=== PATIENT | female | born 1940 | race American Indian/Alaskan Native ===

== ENCOUNTER 2019-10-16 | Observation (INO) | payer MEDICARE ==
[2019-10-16 01:33] LABS: Basophils % (Auto) 0.5 % (0.0-1.8); Eosinophils % (Auto) 0.3 % (0.0-4.3); Lymphocytes # (Auto) 1.9 K/mm3 (1.2-5.4); Mean Corpuscular HGB Conc 34 % (30-34); Mean Corpuscular Volume 88 fl (79-97); Monocytes # (Auto) 0.4 K/mm3 (0.0-0.8); Monocytes % (Auto) 4.6 % (0.0-7.3); Platelet Count 270 K/mm3 (140-440); Red Blood Count 3.97 M/mm3 (3.65-5.03); Red Cell Distribution Width 13.8 % (13.2-15.2)
[2019-10-16 01:57] LABS: Albumin 4.6 g/dL (3.9-5); Calcium 10.7 mg/dL (8.4-10.2)
[2019-10-16] MEDS ORDERED: MORPHINE 4 MG/1 ML INJ IV ONE (03:13)
[2019-10-16] MEDS ORDERED: ONDANSETRON 4 MG/2 ML INJ IV ONE (03:13)
[2019-10-16] MEDS ORDERED: SODIUM CHLORIDE 0.9% 250ML 250 ML IV ONE (03:14)
--- NOTE | 2019-10-16 03:15 | Emergency Department Report ---
ED General Adult HPI - General Chief complaint: Abdominal Pain Stated complaint: N/V/ABD PAIN Time Seen by Provider: 10/16/19 03:02 Source: patient, RN notes reviewed, old records reviewed Mode of arrival: Ambulatory Limitations: No Limitations - History of Present Illness Initial comments: Memory care Dr.: Dr. Osman Calvo Urology: Dr. Ld Tracy Patient is a 79-year-old female with a history of chronic right-sided exotropic strabismus, left-sided nephrectomy secondary to renal cell carcinoma, hypertension, believes that she may have had history of exploratory laparoscopy secondary to ulcer. Presents to the ER with a complaint of diffuse upper abdominal pain, associate with nausea and vomiting 5. It is nonbloody and nonbilious. It is white. She's not sure if she's defecated recently. She denies urinary symptoms. No chest pain and shortness of breath. No additional complaints. Not able to describe qualitative nature of abdominal pain. Increases with palpation. Decreases with rest and position. She does not believe it radiates anywhere. -: Gradual Location: abdomen Radiation: other Quality: other Consistency: other Improves with: other Worsens with: other - Related Data Home Medications Medication Instructions Recorded Confirmed Last Taken Aspirin [Aspirin BABY CHEW TAB] 81 mg PO 3XW 09/14/13 09/14/13 09/13/13 20:00 Tamoxifen Citrate 20 mg PO QDAY 09/14/13 09/14/13 09/13/13 20:00 amLODIPine 5 mg PO QDAY 09/14/13 09/14/13 09/13/13 21:30 Previous Rx's Medication Instructions Recorded Last Taken Type Ibuprofen [Motrin] 600 mg PO Q8H PRN #20 tablet 03/01/16 Unknown Rx Allergies Allergy/AdvReac Type Severity Reaction Status Date / Time No Known Allergies Allergy Verified 10/16/19 00:24 ED Review of Systems ROS: Stated complaint: N/V/ABD PAIN Other details as noted in HPI Constitutional: denies: fever Eyes: denies: eye discharge ENT: denies: congestion Respiratory: denies: wheezing Cardiovascular: denies: syncope Gastrointestinal: abdominal pain, nausea, vomiting. denies: diarrhea Genitourinary: denies: dysuria Musculoskeletal: denies: back pain Skin: denies: lesions Neurological: weakness Hematological/Lymphatic: denies: easy bleeding ED Past Medical Hx - Past Medical History Previous Medical History?: Yes Hx Hypertension: Yes - Surgical History Past Surgical History?: Yes Hx Cholecystectomy: Yes Additional Surgical History: left kidney removed. right eye surgery. breasts biopsy. abd. surgery - Social History Smoking Status: Never Smoker - Medications Home Medications: Home Medications Medication Instructions Recorded Confirmed Last Taken Type Aspirin [Aspirin BABY CHEW TAB] 81 mg PO 3XW 09/14/13 09/14/13 09/13/13 20:00 History Tamoxifen Citrate 20 mg PO QDAY 09/14/13 09/14/13 09/13/13 20:00 History amLODIPine 5 mg PO QDAY 09/14/13 09/14/13 09/13/13 21:30 History Ibuprofen [Motrin] 600 mg PO Q8H PRN #20 tablet 03/01/16 Unknown Rx ED Physical Exam - General Limitations: No Limitations General appearance: alert, in no apparent distress - Head Head exam: Present: atraumatic, normocephalic - Eye Eye exam: Present: normal appearance, other (right-sided exotropic strabismus is noted). Absent: nystagmus - ENT ENT exam: Present: normal exam, normal orophraynx, mucous membranes moist, normal external ear exam - Neck Neck exam: Present: normal inspection, full ROM. Absent: tenderness, meningismus - Respiratory Respiratory exam: Present: normal lung sounds bilaterally. Absent: respiratory distress - Cardiovascular Cardiovascular Exam: Present: regular rate, normal rhythm, normal heart sounds. Absent: bradycardia, tachycardia, irregular rhythm, systolic murmur, diastolic murmur, rubs, gallop - GI/Abdominal GI/Abdominal exam: Present: soft, diminished bowel sounds. Absent: distended, tenderness, guarding, rebound, rigid, pulsatile mass - Extremities Exam Extremities exam: Present: normal inspection, full ROM, other (2+ pulses noted in the bilateral upper and lower extremities. There is no long bony tenderness. The pelvis is stable. The muscular compartments are soft. There is no palpable cord. There is no redness, pus or streaking.). Absent: calf tenderness - Back Exam Back exam: Present: normal inspection, full ROM. Absent: tenderness, CVA tenderness (R), CVA tenderness (L), paraspinal tenderness, vertebral tenderness - Neurological Exam Neurological exam: Present: alert, other (there is no facial droop. Tongue is midline. Extraocular movements are intact bilaterally. Walking with a steady gait. Speaking in full sentences. Normal appropriate thought content. 5 out of 5 strength in 4 extremities. Sensation is intact to light touch in 4 extremities.). Absent: motor sensory deficit - Psychiatric Psychiatric exam: Present: normal affect, normal mood - Skin Skin exam: Present: warm, dry, intact, normal color. Absent: rash ED Course Vital Signs 10/16/19 10/16/19 10/16/19 00:38 02:18 02:24 Temperature 98.8 F Pulse Rate 90 137 H Respiratory 18 20 20 Rate Blood Pressure 127/76 O2 Sat by Pulse 97 100 Oximetry 10/16/19 10/16/19 10/16/19 02:30 02:46 03:00 Temperature Pulse Rate 87 85 89 Respiratory 16 13 16 Rate Blood Pressure 123/73 123/73 121/69 O2 Sat by Pulse 98 98 Oximetry - Reevaluation(s) Reevaluation #1: 10/16/19 04:00 Differential diagnosis, including but not limited to: GERD, gastritis, pancreatitis, hiatal hernia, colitis, diverticulitis, urinary tract infection, acute coronary syndrome, obstruction, constipation Assessment and plan: 79-year-old female with upper abdominal pain, nausea, vomiting, without diarrhea, numerous abdominal surgeries, nonspecific x-ray of the abdomen and pelvis, renal insufficiency without baseline creatinine, urinalysis pending at this time. We will treat her symptoms, obtain urinalysis and additional screening laboratory studies, obtain noncontrast CT scan abdomen and pelvis, and reassess. Low threshold to admit for observation and serial abdominal exams, if CT nondiagnostic, given advanced age, and multiple medical comorbidities. Reevaluation #2: 10/16/19 04:56 Case presented to Hospital physician, Dr. Wyman, who accepts the patient to the medical service for renal insufficiency, abdominal pain, urinary tract infection metabolic acidosis likely secondary to all of the aforementioned 10/16/19 04:58 ED Medical Decision Making - Lab Data Result diagrams: 10/16/19 01:02 10/16/19 01:02 Vital Signs 10/16/19 10/16/19 10/16/19 00:38 02:18 02:24 Temperature 98.8 F Pulse Rate 90 137 H Respiratory 18 20 20 Rate Blood Pressure 127/76 O2 Sat by Pulse 97 100 Oximetry 10/16/19 10/16/19 10/16/19 02:30 02:46 03:00 Temperature Pulse Rate 87 85 89 Respiratory 16 13 16 Rate Blood Pressure 123/73 123/73 121/69 O2 Sat by Pulse 98 98 Oximetry Lab Results 10/16/19 10/16/19 Range/Units 01:02 01:02 WBC 8.0 (4.5-11.0) K/mm3 RBC 3.97 (3.65-5.03) M/mm3 Hgb 12.0 (10.1-14.3) gm/dl Hct 35.0 (30.3-42.9) % MCV 88 (79-97) fl MCH 30 (28-32) pg MCHC 34 (30-34) % RDW 13.8 (13.2-15.2) % Plt Count 270 (140-440) K/mm3 Lymph % (Auto) 24.0 (13.4-35.0) % Mora % (Auto) 4.6 (0.0-7.3) % Eos % (Auto) 0.3 (0.0-4.3) % Baso % (Auto) 0.5 (0.0-1.8) % Lymph # 1.9 (1.2-5.4) K/mm3 Mora # 0.4 (0.0-0.8) K/mm3 Eos # 0.0 (0.0-0.4) K/mm3 Baso # 0.0 (0.0-0.1) K/mm3 Seg Neutrophils % 70.6 H (40.0-70.0) % Seg Neutrophils # 5.6 (1.8-7.7) K/mm3 Sodium 143 (137-145) mmol/L Potassium 4.8 (3.6-5.0) mmol/L Chloride 103.0 (98-107) mmol/L Carbon Dioxide 21 L (22-30) mmol/L Anion Gap 24 mmol/L BUN 50 H (7-17) mg/dL Creatinine 2.8 H (0.7-1.2) mg/dL Estimated GFR 20 ml/min BUN/Creatinine Ratio 18 % Glucose 119 H (65-100) mg/dL Calcium 10.7 H (8.4-10.2) mg/dL Total Bilirubin 0.40 (0.1-1.2) mg/dL AST 24 (5-40) units/L ALT 14 (7-56) units/L Alkaline Phosphatase 110 (35-129) units/L Total Protein 8.8 H (6.3-8.2) g/dL Albumin 4.6 (3.9-5) g/dL Albumin/Globulin Ratio 1.1 % - EKG Data -: EKG Interpreted by Nc EKG shows normal: sinus rhythm Rate: normal - EKG Data When compared to previous EKG there are: previous EKG unavailable 10/16/19 03:56 No prior EKG is available for comparison at this time. The EKG shows a sinus rhythm, 92 bpm, borderline leftward axis deviation, QTC is prolonged, left ventricular hypertrophy, low voltage in the inferior leads, motion artifact. No prior for comparison, not consistent with ST elevation myocardial infarction - Radiology Data Radiology results: report reviewed, image reviewed Print Report Referring Physician: OVIDIO CHOWDARY Patient Name: SHWETA VILLAGOMEZ Date of : 1940 Sex: Female Report Date: 2019-10-16 Report Status: Finalized Findings [facility] [address] [place] [address] XRay Report Signed Patient: SHWETA VILLAGOMEZ R#: [id number] : 1940 Acct:[id number] Age/Sex: 79 / F ADM Date: 10/16/19 Loc: ED Attending Dr: Ordering Physician: OVIDIO CHOWDARY MD Date of Service: 10/16/19 Procedure(s): XR abd series w cxr 1V Accession Number(s): [id number] cc: OVIDIO CHOWDARY MD Fluoro Time In Minutes: Abdomen 3 views, Indication: ABD PAIN N/V WEAK Findings: The bowel gas pattern is within normal limits. There are no dilated loops of large or small bowel. No free air is identified. No radiopaque urinary tract calculi are seen. Lungs are clear. Impression: No acute findings. Signer Name: Henry Poon MD Signed: 10/16/2019 3:42 AM Workstation Name: [id number] Transcribed By: Dictated By: Henry Poon MD Electronically Authenticated By: Henry Poon MD Signed Date/Time: 10/16/19 0342 Print Report Referring Physician: OVIDIO CHOWDARY Patient Name: SWHETA VILLAGOMEZ Date of : 1940 Sex: Female Report Date: 2019-10-16 Report Status: Finalized Findings [facility] [address] [place] [address] Cat Scan Report Signed Patient: SHWETA VILLAGOMEZ R#: [id number] : 1940 Acct:[id number] Age/Sex: 79 / F ADM Date: 10/16/19 Loc: ED Attending Dr: Ordering Physician: OVIDIO CHOWDARY MD Date of Service: 10/16/19 Procedure(s): CT abdomen pelvis wo con Accession Number(s): [id number] cc: OVIDIO CHOWDARY MD CT abdomen pelvis wo con INDICATION: ABDOMINAL PAIN WITH NAUSEA VOMITING. TECHNIQUE: All CT scans at this location are performed using the following dose modulation technique: Automated exposure control. Helical slices were obtained through the abdomen and pelvis. No contrast is administered. COMPARISON: None available. FINDINGS: A small pericardial effusion. H ypodensities in the liver too small to characterize but likely represent cysts. Calcified granulomata are noted in the spleen. No acute abnormality is seen in the pancreas, adrenal glands, spleen. There is been prior left nephrectomy. There is a 3.3 cm soft tissue density lesion in the upper pole of the right kidney. There is no obstruction or inflammation. The gallbladder is grossly unremarkable. Pelvis: The urinary bladder is significantly distended. There are nodules in the uterus characteristic of fibroids. There is no adenopathy. There is no inflammatory change. On review of bone windows, no acute osseous abnormalities are seen. There is a grade 1 spondylolisthesis at L4-5. IMPRESSION: The urinary bladder is significantly distended. 3.3 cm nodule in the right kidney is somewhat hyperdense. This likely represents a hyperdense cyst. Ultrasound imaging is recommended to further evaluate. There is been prior left nephrectomy. There is a small pericardial effusion. Hypodensities in the liver too small to characterize. These are likely cysts. Signer Name: Henry Poon MD Signed: 10/16/2019 4:48 AM Workstation Name: [id number] Transcribed By: SS Dictated By: Henry Poon MD Electronically Authenticated By: Henry Poon MD Signed Date/Time: 10/16/19 1541 Critical care attestation.: If time is entered above; I have spent that time in minutes in the direct care of this critically ill patient, excluding procedure time. ED Disposition Clinical Impression: Renal insufficiency, UTI (urinary tract infection), Metabolic acidosis Disposition: -09 OP ADMIT IP TO THIS HOSP Is pt being admited?: Yes Condition: Fair Instructions: Abdominal Pain (ED) Referrals: ALLYN BOWMAN MD [Referring] - 3-5 Days
--- NOTE | 2019-10-16 03:47 | XRay Report ---
Abdomen 3 views, Indication: ABD PAIN N/V WEAK Findings: The bowel gas pattern is within normal limits. There are no dilated loops of large or small bowel. No free air is identified. No radiopaque urinary tract calculi are seen. Lungs are clear. Impression: No acute findings. Signer Name: Henry Poon MD Signed: 10/16/2019 3:42 AM Workstation Name: [id number]
[2019-10-16 04:34] LABS: Bacteria,Urine 1+ /HPF (Negative); Bilirubin,Urine NEG (Negative); Blood,Urine MOD (Negative); Color,Urine Yellow (Yellow); Mucus,Urine FEW /HPF; Protein,Urine <15 mg/dL mg/dL (Negative); Urobilinogen,Urine < 2.0 mg/dL (<2.0)
[2019-10-16] MEDS ORDERED: cefTRIAXone/NS 1 GM/50 ML 1 GM/50 ML BAG IV ONE (04:50)
--- NOTE | 2019-10-16 04:52 | Cat Scan Report ---
CT abdomen pelvis wo con INDICATION: ABDOMINAL PAIN WITH NAUSEA VOMITING. TECHNIQUE: All CT scans at this location are performed using the following dose modulation technique: Automated exposure control. Helical slices were obtained through the abdomen and pelvis. No contrast is adminis tered. COMPARISON: None available. FINDINGS: A small pericardial effusion. Hypodensities in the liver too small to characterize but likely represe nt cysts. Calcified granulomata are noted in the spleen. No acute abnormality is seen in the pancreas , adrenal glands, spleen. There is been prior left nephrectomy. There is a 3.3 cm soft tissue density lesion in the upper pole of the right kidney. There is no obstruction or inflammation. The gallbladder is grossly unremarkable. Pelvis: The urinary bladder is significantly distended. There are nodules in the uterus characteristi c of fibroids. There is no adenopathy. There is no inflammatory change. On review of bone windows, no acute osseous abnormalities are seen. There is a grade 1 spondylolisthe sis at L4-5. IMPRESSION: The urinary bladder is significantly distended. 3.3 cm nodule in the right kidney is somewhat hyperdense. This likely represents a hyperdense cyst. U ltrasound imaging is recommended to further evaluate. There is been prior left nephrectomy. There is a small pericardial effusion. Hypodensities in the liver too small to characterize. These are likely cysts. Signer Name: Henry Poon MD Signed: 10/16/2019 4:48 AM Workstation Name: [id number]
[2019-10-16] MEDS ORDERED: ACETAMINOPHEN 325 MG TAB PO PRN (05:50)
--- NOTE | 2019-10-16 05:55 | History and Physical Report ---
History of Present Illness History of present illness: 79-year-old woman with a history of hypertension, renal cell cancer comes emergency room with complaints of abdominal pain that started Monday. Pain is in t all over which she describes as sharp pain, constant, intensity 5/10, intermittent every 2 to 3 minutes, no radiation better with pain medication given in the emergency room. Admits to nausea, no vomiting, vomiting, 5 episodes. Denies dysuria, admits to urinary frequency. Patient states that she was started on antibiotic recently for urinary tract infection, she has completed 5 days out of 7, she does not know the antibiotic which she is taking. The patient is being admitted for acute renal insufficiency, urinary tract infe ction Review Of Systems: Constitutional: no weight loss, fever, chills Ears, eyes, nose, mouth and throat: no nasal congestion, no nasal discharge, no sinus pressure, blurry vision, diplopia Neck: No neck pain or rigidity. Cardiovascular: No palpitations, chest pain Respiratory: No s cough, shortness of breath Gastrointestinal: No hematochezia Genitourinary : no dysuria, frequency , hematuria Musculoskeletal: no muscle ache , joint pain Integumentary: no rash, no pruritis Neurological: no parathesias, focal weakness Endocrine: no cold or heat intolerance, no polyuria or polydipsia Hematologic/Lymphatic: no easy bruising, no easy bleeding, no gland swelling Allergic/Immunologic: no urticaria, no angioedema. PAST MEDICAL HISTORY: Hypertension, renal cell cancer PAST SURGICAL HISTORY: Left nephrectomy FAMILY HISTORY:hypertension, diabetes SOCIAL HISTORY: Denies tobacco, drugs, alcohol Medications and Allergies Allergies Allergy/AdvReac Type Severity Reaction Status Date / Time No Known Allergies Allergy Verified 10/16/19 00:24 Home Medications Medication Instructions Recorded Confirmed Last Taken Type Aspirin [Aspirin BABY CHEW TAB] 81 mg PO 3XW 09/14/13 09/14/13 09/13/13 20:00 History Tamoxifen Citrate 20 mg PO QDAY 09/14/13 09/14/13 09/13/13 20:00 History amLODIPine 5 mg PO QDAY 09/14/13 09/14/13 09/13/13 21:30 History Ibuprofen [Motrin] 600 mg PO Q8H PRN #20 tablet 03/01/16 Unknown Rx Active Meds: Active Medications Acetaminophen (Tylenol) 650 mg PO Q4H PRN PRN Reason: Pain MILD(1-3)/Fever >100.5/MAYA Enoxaparin Sodium (Enoxaparin) 30 mg SUB-Q QDAY LAURA Sodium Chloride (Nacl 0.45% 1000 Ml) 1,000 mls @ 75 mls/hr IV DIRECT LAURA Ondansetron HCl (Zofran) 4 mg IV Q8H PRN PRN Reason: Nausea And Vomiting Sodium Chloride (Sodium Chloride Flush Syringe 10 Ml) 10 ml IV BID LAURA Sodium Chloride (Sodium Chloride Flush Syringe 10 Ml) 10 ml IV PRN PRN PRN Reason: LINE FLUSH Exam - Physical Exam Narrative exam: General Apperance: The patient sitting in bed no acute distress HEENT: Normocephalic, atraumatic. Pupils equally round and reactive to light, extraocular movement intact, and no sclericterus or JVD or thyromegaly or nodule. Neck supple, no carotid bruit, mucous membranes moist, no exudate or erythema Heart: S1-S2, regular is rhythm Lungs: Clear to auscultation decreased breath sounds at bases bilaterally, breathing comfortable Abdomen: Positive bowel sounds, soft, nontender, nondistended, no organomegaly Extremities: No edema cyanosis clubbing Skin: no rash, nodule, warm and dry Neuro:CN 2 -12 intact, motor/sensory intact, speech is fluent - Constitutional Vitals: Temp Pulse Resp BP Pulse Ox 98.8 F 82 16 114/65 95 10/16/19 00:38 10/16/19 03:46 10/16/19 03:46 10/16/19 05:30 10/16/19 05:30 Results - Labs CBC & Chem 7: 10/16/19 01:02 10/16/19 01:02 Labs: Abnormal lab results 10/16/19 10/16/19 10/16/19 Range/Units 01:02 01:02 03:38 Seg Neutrophils % 70.6 H (40.0-70.0) % Carbon Dioxide 21 L (22-30) mmol/L BUN 50 H (7-17) mg/dL Creatinine 2.8 H (0.7-1.2) mg/dL Glucose 119 H (65-100) mg/dL Lactic Acid 2.40 H* (0.7-2.0) mmol/L Calcium 10.7 H (8.4-10.2) mg/dL Total Protein 8.8 H (6.3-8.2) g/dL Lipase (13-60) units/L Urine WBC (Auto) (0.0-6.0) /HPF 10/16/19 10/16/19 Range/Units 03:38 Unknown Seg Neutrophils % (40.0-70.0) % Carbon Dioxide (22-30) mmol/L BUN (7-17) mg/dL Creatinine (0.7-1.2) mg/dL Glucose (65-100) mg/dL Lactic Acid (0.7-2.0) mmol/L Calcium (8.4-10.2) mg/dL Total Protein (6.3-8.2) g/dL Lipase 89 H (13-60) units/L Urine WBC (Auto) 35.0 H (0.0-6.0) /HPF - Imaging and Cardiology Chest x-ray: report reviewed Abdominal x-ray: report reviewed CT scan - abdomen: report reviewed CT scan - pelvis: report reviewed Assessment and Plan Assessment Acute renal insufficiency Start IV fluid, monitor kidney function Urinary tract infection Start IV Rocephin, follow cultures Hypertension Blood pressure normotensive, hold antihypertensive for now DVT prophylaxis
[2019-10-16 07:27] LABS: Basophils % (Auto) 0.4 % (0.0-1.8); Eosinophils % (Auto) 0.3 % (0.0-4.3); Hematocrit 34.5 % (30.3-42.9); Hemoglobin 11.2 gm/dl (10.1-14.3); Lymphocytes # (Auto) 1.9 K/mm3 (1.2-5.4); Lymphocytes % (Auto) 26.6 % (13.4-35.0); Mean Corpuscular HGB Conc 33 % (30-34); Mean Corpuscular Volume 88 fl (79-97); Monocytes # (Auto) 0.4 K/mm3 (0.0-0.8); Monocytes % (Auto) 6.1 % (0.0-7.3); Platelet Count 256 K/mm3 (140-440); Red Blood Count 3.93 M/mm3 (3.65-5.03)
[2019-10-16 07:42] LABS: Calcium 10.3 mg/dL (8.4-10.2)
[2019-10-16] MEDS ORDERED: MORPHINE 2 MG/1 ML INJ IV PRN (10:40)
[2019-10-16] MEDS: ENOXAPARIN 30 MG/0.3 ML INJ SUB-Q SCH (10:46)
[2019-10-16] MEDS: SODIUM CHLORIDE 0.45% 1000 ML 1,000 ML IV SCH ×2 (10:51→23:18)
[2019-10-16] MEDS: oxyCODONE /ACETAMINOPHEN 5-325MG TAB PO PRN ×2 (13:11→22:04)
[2019-10-16] MEDS: ONDANSETRON 4 MG/2 ML INJ IV PRN (13:47)
--- NOTE | 2019-10-16 15:30 | Event Note ---
Date: 10/16/19 Patient seen and examined admitted for STARLA, abdominal pain cont iv fluid, renal US for right renal cyst further assessment CT abdomen/pelvis: The urinary bladder is significantly distended. 3.3 cm nodule in the right kidney is somewhat hyperdense. This likely represents a hyperdense cyst. Ultrasound imaging is recommended to further evaluate. There is been prior left nephrectomy. There is a small pericardial effusion. Hypodensities in the liver too small to characterize. These are likely cysts.
[2019-10-17] MEDS: ONDANSETRON 4 MG/2 ML INJ IV PRN ×3 (00:43→21:50)
[2019-10-17 06:44] LABS: Calcium 9.5 mg/dL (8.4-10.2)
--- NOTE | 2019-10-17 09:34 | Ultrasound Report ---
RIGHT RENAL ULTRASOUND HISTORY: Right renal cyst. COMPARISON: CT abdomen and pelvis previous day. FINDINGS: Right kidney measures 9.6 cm. Cortex measures 1.3 cm. Cortical echogenicity is mildly increased. A co mplex cyst at the upper pole measures 2.4 cm. No significant soft tissue component is present. Status post previous left nephrectomy. The bladder contains moderate urine. IMPRESSION: 1. Complex cyst right kidney. In conjunction with the CT findings, the appearance is typical of a hem orrhagic cyst. 2. Previous left nephrectomy. Signer Name: Desmond Morales MD Signed: 10/17/2019 9:29 AM Workstation Name: [id number]
[2019-10-17] MEDS: ENOXAPARIN 30 MG/0.3 ML INJ SUB-Q SCH (09:57)
[2019-10-17] MEDS ORDERED: LEVOTHYROXINE 50 MCG TAB PO SCH (10:00)
[2019-10-17] MEDS ORDERED: NON-FORMULARY EACH (Simvastatin [Simvastatin] 20 MG) PO SCH (10:00)
--- NOTE | 2019-10-17 12:30 | Discharge Summary ---
Providers - Providers Date of Admission: 10/16/19 05:15 Date of discharge: 10/17/19 Attending physician: GILBERTO MCKOY 10/16/19 12:45 Physical Therapy Evaluation and Treat [CONS] Routine Comment: Reason For Exam: Weakness Primary care physician: JEFFREY CHAMPAGNE Hospitalization Condition: Fair Pertinent studies: Abdominal XRY: No acute findings. Abdomen/pelvis CT: The urinary bladder is significantly distended. 3.3 cm nodule in the right kidney is somewhat hyperdense. This likely represents a hyperdense cyst. Ultrasound imaging is recommended to further evaluate. There is been prior left nephrectomy. There is a small pericardial effusion. Hypodensities in the liver too small to characterize. These are likely cysts. Renal US: 1. Complex cyst right kidney. In conjunction with the CT findings, the appearance is typical of a hemorrhagic cyst. 2. Previous left nephrectomy. Hospital course: Discharge diagnosis: STARLA, due to dehydration with vasomotor nephropathy vs medication induced - held diuretics and ACEI, given iv fluid hydration Urinary tract infection, placed on abx Hypertension, stable, placed on norvasc Abdominal pain/N/V - viral gastroenteritis VS GERD, likely - CT abdomen/pelvis w/o acute findings - placed on PPI and carafate h/o left nephrectomy - has outpt f/u with Dr Anne Right kidney Hemorrhagic cyst, outpt f/u with urology Disposition: DC-01 TO HOME OR SELFCARE Time spent for discharge: 34 minutes Core Measure Documentation - Palliative Care Palliative Care/ Comfort Measures: Not Applicable - Core Measures Any of the following diagnoses?: none Exam - Constitutional Vitals: Temp Pulse Resp BP Pulse Ox 97.8 F 71 18 139/74 95 10/17/19 07:28 10/17/19 07:28 10/17/19 07:28 10/17/19 07:28 10/17/19 07:28 General appearance: Present: no acute distress - EENT Eyes: Present: PERRL ENT: hearing intact, clear oral mucosa - Neck Neck: Present: supple, normal ROM - Respiratory Respiratory effort: normal Respiratory: bilateral: CTA - Cardiovascular Heart Sounds: Present: S1 & S2. Absent: rub, click - Extremities Extremities: pulses symmetrical, No edema Peripheral Pulses: within normal limits - Abdominal General gastrointestinal: Present: soft, non-tender, non-distended, normal bowel sounds - Integumentary Integumentary: Present: clear, warm, dry - Musculoskeletal Musculoskeletal: gait normal, strength equal bilaterally - Psychiatric Psychiatric: appropriate mood/affect, intact judgment & insight - Neurologic Neurologic: CNII-XII intact, moves all extremities Plan Activity: advance as tolerated Weight Bearing Status: Weight Bear as Tolerated Diet: low fat, low salt [facility] [Referring] - 3-5 Days MAGO ANNE MD [Staff Physician] - 7 Days Prescriptions: Sucralfate [Carafate] 1 gm PO ACHS 7 Days #14 oral.liqd Ciprofloxacin HCl [Ciprofloxacin TAB] 500 mg PO Q12HR #6 tab Amlodipine Besylate [Norvasc] 5 mg PO DAILY #30 tablet Pantoprazole [Protonix TAB] 40 mg PO QDAY #30 tablet
[2019-10-17] MEDS ORDERED: PANTOPRAZOLE 40 MG TAB PO SCH (13:00)
--- NOTE | 2019-10-17 13:16 | Progress Note ---
Assessment and Plan soft tissue mass pt aware may need partial or cryo pt has f/u dr bruno dictated Subjective Date of service: 10/17/19 Objective - Constitutional Vitals: Vital Signs - 12hr 10/17/19 10/17/19 02:35 07:28 Temperature 98.3 F 97.8 F Pulse Rate 65 71 Respiratory 18 18 Rate Blood Pressure 124/69 139/74 O2 Sat by Pulse 95 95 Oximetry General appearance: Present: no acute distress - Neck Neck: supple Extremities: no ischemia - Gastrointestinal General gastrointestinal: Present: soft - Labs CBC & Chem 7: 10/16/19 06:56 10/17/19 05:29 Labs: Abnormal lab results 10/17/19 Range/Units 05:29 Carbon Dioxide 21 L (22-30) mmol/L BUN 41 H (7-17) mg/dL Creatinine 2.0 H (0.7-1.2) mg/dL Medications & Allergies - Medications Allergies/Adverse Reactions: Allergies No Known Allergies Allergy (Verified 10/16/19 00:24) Home Medications: Home Medications Medication Instructions Recorded Confirmed Last Taken Type Levothyroxine [Synthroid] 50 mcg PO QAM 10/16/19 10/16/19 10/15/19 History Simvastatin 20 mg PO DAILY 10/16/19 10/16/19 10/15/19 History Amlodipine Besylate [Norvasc] 5 mg PO DAILY #30 tablet 10/17/19 Unknown Rx Ciprofloxacin HCl [Ciprofloxacin 500 mg PO Q12HR #6 tab 10/17/19 Unknown Rx TAB] Pantoprazole [Protonix TAB] 40 mg PO QDAY #30 tablet 10/17/19 Unknown Rx Sucralfate [Carafate] 1 gm PO ACHS 7 Days #14 oral.liqd 10/17/19 Unknown Rx Active Medications: Generic Name Dose Route Start Last Admin Trade Name Freq PRN Reason Stop Dose Admin Acetaminophen 650 mg 10/16/19 05:50 Tylenol PO Q4H PRN Pain MILD(1-3)/Fever >100.5/MAYA Enoxaparin Sodium 30 mg 10/16/19 10:00 10/17/19 09:57 Enoxaparin SUB-Q 30 mg QDAY LAURA Administration Sodium Chloride 1,000 mls @ 75 mls/hr 10/16/19 06:00 10/16/19 23:18 Nacl 0.45% 1000 Ml IV 75 mls/hr DIRECT LAURA Administration Levothyroxine Sodium 50 mcg 10/17/19 10:00 10/17/19 09:57 Synthroid PO Not Given QAM LAURA Morphine Sulfate 2 mg 10/16/19 10:40 10/16/19 11:02 Morphine IV 2 mg Q4H PRN Administration Pain , Severe (7-10) Ondansetron HCl 4 mg 10/16/19 05:50 10/17/19 09:53 Zofran IV 4 mg Q8H PRN Administration Nausea And Vomiting Oxycodone/Acetaminophen 1 tab 10/16/19 10:40 10/16/19 22:04 Percocet 5/325 PO 1 tab Q6H PRN Administration Pain, Moderate (4-6) Pantoprazole Sodium 40 mg 10/17/19 13:00 Protonix PO QDAY [facility] Pravastatin Sodium 40 mg 10/17/19 22:00 Pravachol PO QHS [facility] Sodium Chloride 10 ml 10/16/19 10:00 10/17/19 10:01 Sodium Chloride Flush Syringe 10 Ml IV Not Given BID LAURA Sodium Chloride 10 ml 10/16/19 05:50 Sodium Chloride Flush Syringe 10 Ml IV PRN PRN LINE FLUSH Sucralfate 1 gm 10/17/19 16:30 Carafate PO ACHS LAURA
[2019-10-17] MEDS ORDERED: SUCRALFATE 1 GM/10 ML ORAL LIQD PO SCH (16:30)
[2019-10-17 21:39] VITALS: BP 118/73
[2019-10-17] MEDS ORDERED: PRAVASTATIN 40 MG TAB PO SCH (22:00)
--- NOTE | 2019-10-18 00:09 | Consultation ---
HISTORY OF PRESENT ILLNESS: The patient presented with abdominal pain. She is 79. She has been followed by Dr. Anne and she saw him about 2-3 weeks ago. They have been following this hyperdense possible soft tissue mass, which has been about 2.2-2.3 cm. It is now 3.3 cm. I discussed this with her and she has a followup with Dr. Anne. PAST MEDICAL HISTORY: Please see the records. She has had multiple urological procedures. She has had a left nephrectomy for renal cell cancer and hypertension. SOCIAL HISTORY: Negative. FAMILY HISTORY: Noncontributory. REVIEW OF SYSTEMS: No hematuria. PHYSICAL EXAMINATION: GENERAL: She is awake. She is in no distress. ABDOMEN: Soft. IMPRESSION: Right renal mass, history of renal cell carcinoma, solitary right kidney. For now, this lesion has been watched. We will see her back in the office and follow this and possibly arrange to treat it if needed. JOB# [id number] YANA/ANIRUDH
== END 2019-10-17 22:35 | disposition home or self-care (01) ==
LOC: SUATTDRO → ED → INTOOBSV 05:15 → 2B-ACE 05:15
PROVIDERS: ADMIT Internal Medicine; ATTEND Internal Medicine
DX: N28.9 Disorder of kidney and ureter, unspecified (principal); N39.0 Urinary tract infection, site not specified; I10 Essential (primary) hypertension; R11.2 Nausea with vomiting, unspecified; E87.2 Acidosis; Z85.53 Personal history of malignant neoplasm of renal pelvis; Z79.82 Long term (current) use of aspirin; Z90.49 Acquired absence of other specified parts of digestive tract
CPT/HCPCS: 36415; 74022; 74176; 76775; 80048; 80053; 81001; 82140; 82550; 83690; 83735; 84484; 85025; 87086; 93005; 93010; 96361; 96365; 96372; 96375; 96376; 97162; 99284; G0378; J0696; J1650; J2270; J2405; J7030; J7050; 96374